=== PATIENT | male | born 1935 | race Caucasian/White ===

== ENCOUNTER → 2018-06-22 | Outpatient (CLI) | payer MEDICARE ==
[~2018-06-22] MED LIST: DIPH25CA61 PO; FENTANYL PF 100 MCG/2ML ONE; FLUMAZENIL 0.1 MG/1 ML, 5ML ONE; LOSA25TA6 PO; LOVA20TA2 PO; MIDAZOLAM 1 MG/ML, 5ML ONE; NALOXONE 1 MG/ML, 2ML ONE; OXYC-302 PO; POLY17PO5 PO; PSYL0.5215 PO; SENN-31 PO; TERA10CA3 PO; TIZA4CAP2 PO
== END | disposition home or self-care (01) ==
LOC: RAD 08:24
PROVIDERS: ATTEND Neurological Surgery
DX: M47.894 Other spondylosis, thoracic region (principal); M48.04 Spinal stenosis, thoracic region; M48.061 Spinal stenosis, lumbar region without neurogenic claudication; M47.896 Other spondylosis, lumbar region; N28.1 Cyst of kidney, acquired; M51.36 Other intervertebral disc degeneration, lumbar region; M51.34 Other intervertebral disc degeneration, thoracic region
CPT/HCPCS: 72146; 72148; 99156; 99157; J2250; J3010; J2310

== ENCOUNTER 2019-05-15 10:50 | Inpatient (IN) | payer MEDICARE ==
[~2019-05-15] VITALS: Ht 185.4 cm; Wt 103.0 kg
[~2019-05-15 10:50] MED LIST changes: -FENTANYL PF 100 MCG/2ML ONE; -FLUMAZENIL 0.1 MG/1 ML, 5ML ONE; +LOSA25TA25 PO; -LOSA25TA6 PO; -MIDAZOLAM 1 MG/ML, 5ML ONE; -NALOXONE 1 MG/ML, 2ML ONE
--- NOTE | 2019-05-15 11:23 | NUR ---
PT WITH C/O LOWER BACK PAIN. PAIN HAS BEEN OCCURING FOR THE PAST TWO WEEKS, PT STATES "I DID SOMETHING TO MY BACK WHEN I WAS GOLFING", PT WOKE UP THIS MORNING AND STATED HE COULD BARLEY MOVE, PT IN 05/03. PT WITH HX OF MULTIPLE BACK SURGURIES
[2019-05-15] MEDS ORDERED: HYDROmorphone 2 MG/ML, 1ML IVPush PRN (12:00)
[2019-05-15] MEDS ORDERED: HYDROmorphone 1 MG/ML, 1ML VIAL ONE (12:02)
--- NOTE | 2019-05-15 12:12 | NUR ---
TASK RN: FIRST CONTACT WITH PT. Provided pt medication for pain per EMAR. Pt appreciative. Pt connected to pulse ox monitor. Bedrails up x 2 and call light within reach. NADN. No other needs expressed.
[2019-05-15 12:14] LABS: BASOPHILS # (AUTO) 0.04 x10^3/uL (0-0.1); BASOPHILS % (AUTO) 1 % (0-1); EOSINOPHILS % (AUTO) 1 % (1-7); LYMPHOCYTES # (AUTO) 1.36 x10^3/uL (1-3.4); LYMPHOCYTES % (AUTO) 18 % (22-44); MD NO; MEAN CORPUSCULAR HEMOGLOBIN 31.8 pg (27.5-34.5); MEAN CORPUSCULAR HGB CONC 33.6 g/dL (33.2-36.2); MEAN CORPUSCULAR VOLUME 94.5 fL (81-97); MEAN PLATELET VOLUME 7.7 fL (7.4-10.4); MONOCYTES # (AUTO) 0.45 x10^3/uL (0.2-0.8); MONOCYTES % (AUTO) 6 % (2-9); NEUTROPHILS # (AUTO) 5.51 x10^3/uL (1.8-6.8); NEUTROPHILS % (AUTO) 74 % (42-75); PLATELET COUNT 189 x10^3/uL (130-400); RED BLOOD COUNT 5.76 x10^6/uL (4.38-5.82); RED CELL DISTRIBUTION WIDTH 14.1 % (9.4-14.8)
[2019-05-15 12:26] LABS: ANION GAP 9 mmol/L (5-15); CALCIUM 9.4 mg/dL (8.5-10.1); CHLORIDE 109 mmol/L (98-107); CREATININE 1.64 mg/dL (0.7-1.3)
[2019-05-15] MEDS ORDERED: TAMS-11 PO (13:53)
--- NOTE | 2019-05-15 13:58 | NUR ---
REPORT GIVEN TO RECSHELBY HURST
[2019-05-15 15:03] VITALS: BP 161/77
[2019-05-15] MEDS ORDERED: TIZANIDINE 4MG TABLET PO PRN (18:00)
[2019-05-15] MEDS ORDERED: OXYcodone/APAP 5/325MG TABLET PO PRN (18:00)
[2019-05-15] MEDS ORDERED: MEDROL 4MG DOSEPAK PO SCH (18:30)
[2019-05-15] MEDS: PSYLLIUM PACKET PO SCH (18:30)
[2019-05-15] MEDS ORDERED: POLYETHYLENE GLYCOL 17 GM PACKET PO PRN (19:00)
[2019-05-15] MEDS ORDERED: BISACODYL 10 MG SUPP PR PRN (19:00)
[2019-05-15] MEDS ORDERED: LIDODERM 5% PATCH TD PRN (19:00)
[2019-05-15] MEDS ORDERED: DOCUSATE 100 MG CAPSULE PO PRN (19:00)
[2019-05-15] MEDS ORDERED: morphine SULFATE 10 MG/ML, 1ML IVPush PRN (19:00)
[2019-05-15 19:08] VITALS: BP 156/72
[2019-05-15] MEDS: ENOXAPARIN 30 MG/0.3 ML SQ SCH ×2 (20:00→20:18)
[2019-05-15] MEDS: KETOROLAC 30 MG/1 ML IV PRN (20:18)
[2019-05-15] MEDS: SODIUM CHLORIDE 0.9% 1,000 ML IV SCH (20:19)
[2019-05-15] MEDS ORDERED: LOVASTATIN 20 MG TABLET PO SCH (21:00)
[2019-05-15] MEDS ORDERED: DIPHENHYDRAMINE 25 MG CAPSULE PO SCH (21:00)
[2019-05-16 04:38] VITALS: BP 149/68
[2019-05-16 04:41] VITALS: BP 149/68
[2019-05-16 05:06] VITALS: BP 126/75
[2019-05-16] MEDS: KETOROLAC 30 MG/1 ML IV PRN (05:14)
[2019-05-16 06:05] LABS: BASOPHILS # (AUTO) 0.03 x10^3/uL (0-0.1); BASOPHILS % (AUTO) 1 % (0-1); EOSINOPHILS # (AUTO) 0.18 x10^3/uL (0-0.4); EOSINOPHILS % (AUTO) 3 % (1-7); LYMPHOCYTES # (AUTO) 1.13 x10^3/uL (1-3.4); LYMPHOCYTES % (AUTO) 19 % (22-44); MD NO; MEAN CORPUSCULAR HEMOGLOBIN 32.5 pg (27.5-34.5); MEAN CORPUSCULAR HGB CONC 34.1 g/dL (33.2-36.2); MEAN CORPUSCULAR VOLUME 95.4 fL (81-97); MEAN PLATELET VOLUME 8.1 fL (7.4-10.4); MONOCYTES # (AUTO) 0.52 x10^3/uL (0.2-0.8); MONOCYTES % (AUTO) 9 % (2-9); NEUTROPHILS % (AUTO) 69 % (42-75); PLATELET COUNT 156 x10^3/uL (130-400); RED BLOOD COUNT 5.07 x10^6/uL (4.38-5.82); RED CELL DISTRIBUTION WIDTH 14.7 % (9.4-14.8)
[2019-05-16 06:19] LABS: ALANINE AMINOTRANSFERASE 31 U/L (12-78); ALBUMIN 3.5 g/dL (3.4-5.0); ANION GAP 9 mmol/L (5-15); CALCIUM 8.2 mg/dL (8.5-10.1); CHLORIDE 111 mmol/L (98-107)
[2019-05-16 06:32] LABS: ALKALINE PHOSPHATASE 44 U/L (45-117); CREATININE 1.58 mg/dL (0.7-1.3); TOTAL PROTEIN 5.9 g/dL (6.4-8.2)
[2019-05-16] MEDS ORDERED: PANTOPROZOLE 40MG TABLET PO SCH (07:30)
[2019-05-16 07:38] VITALS: BP 131/69
[2019-05-16] MEDS ORDERED: FENTANYL PF 100 MCG/2ML ONE (08:27)
[2019-05-16] MEDS ORDERED: MIDAZOLAM 1 MG/ML, 5ML ONE (08:27)
[2019-05-16] MEDS ORDERED: LOSARTAN 25MG TABLET PO SCH (09:00)
[2019-05-16] MEDS: PSYLLIUM PACKET PO SCH (09:00)
[2019-05-16] MEDS ORDERED: SENNA/DOCUSATE TABLET PO SCH (09:00)
[2019-05-16] MEDS ORDERED: POLYETHYLENE GLYCOL 17 GM PACKET PO SCH ×2 (09:00)
[2019-05-16] MEDS ORDERED: TAMSULOSIN 0.4 MG CAP.ER.24H PO SCH (09:00)
[2019-05-16] MEDS: SODIUM CHLORIDE 0.9% 1,000 ML IV SCH (10:37)
[2019-05-16 13:24] VITALS: BP 104/62
[2019-05-16] MEDS ORDERED: LIDO700A20 TD (14:52)
[2019-05-16] MEDS ORDERED: METH4TAB2 PO (14:52)
[2019-05-16] MEDS ORDERED: ENOXAPARIN 40 MG/0.4 ML SQ SCH (20:00)
== END 2019-05-16 15:45 | disposition home or self-care (01) | DRG 563 ==
LOC: ED 13:46 → 3N 13:55 → DCLOUNGE 05-16 15:37
PROVIDERS: ADMIT Internal Medicine; ATTEND Internal Medicine
DX: S39.012A Strain of muscle, fascia and tendon of lower back, initial encounter (principal); N17.9 Acute kidney failure, unspecified; E78.5 Hyperlipidemia, unspecified; G89.29 Other chronic pain; I12.9 Hypertensive chronic kidney disease with stage 1 through stage 4 chronic kidney disease, or unspecified chronic kidney disease; K58.9 Irritable bowel syndrome, unspecified; M48.061 Spinal stenosis, lumbar region without neurogenic claudication; X58.XXXA Exposure to other specified factors, initial encounter; M51.36 Other intervertebral disc degeneration, lumbar region; N18.9 Chronic kidney disease, unspecified; N40.0 Benign prostatic hyperplasia without lower urinary tract symptoms; Z66 Do not resuscitate; Z80.8 Family history of malignant neoplasm of other organs or systems; Z87.891 Personal history of nicotine dependence; Y93.89 Activity, other specified; Y92.89 Other specified places as the place of occurrence of the external cause; Y99.8 Other external cause status
CPT/HCPCS: 36415; 72110; 72158; 80048; 80053; 83735; 84100; 84145; 84439; 84443; 85025; 96374; 99156; 99157; G0378; J1170; J1650; J1885; J2250; J3010; J7509; J7030; Q0163